=== PATIENT | male | born 1990 | race Caucasian/White ===

== ENCOUNTER 2022-09-25 18:16 | Emergency (ER) | payer OTHER, SELFPAY ==
[2022-09-25 18:27] VITALS: BP 144/78; PULSE 75; RESP 16; TEMP 36.4; O2SAT 100
--- NOTE | 2022-09-25 19:03 | ED.GENADULT ---
HPI - General Adult General Chief complaint: Neck Pain/Injury Stated complaint: neck pain Time Seen by Provider: 09/25/22 18:50 History of Present Illness HPI narrative: 32-year-old male present emergency department for evaluation of neck pain. Patient states that he woke up with the neck pain. Patient states the pain does radiate to both of his shoulders and is worsened with movement of his head. Patient denies any associated numbness or weakness. Patient has been taking ibuprofen and Excedrin without significant improvement of his pain. Related Data Allergies Allergy/AdvReac Type Severity Reaction Status Date / Time pseudoephedrine Allergy Unknown Unknown Verified 09/25/22 19:24 Review of Systems Review of Systems: All systems reviewed & are unremarkable except as noted in HPI and below Exam Narrative: APPEARANCE: Well appearing, no pain, no distress, well-nourished. HEAD: normocephalic, atraumatic. EYES: PERRLA/EOMI, conjunctivae clear. NOSE: Normal no drainage NECK: Supple. No adenopathy, no masses. RESPIRATORY: Airway patent, respirations nonlabored. Clear to auscultation bilaterally, no rales, rhonchi, wheezing. CARDIOVASCULAR: Regular rate and rhythm without murmurs rubs or gallops. ABDOMINAL: Soft, nontender, nondistended, normal bowel sounds MUSCULOSKELETAL: No significant midline neck tenderness but does have tenderness of the paraspinal muscles into bilateral deltoids NEURO: Alert. Cranial nerves II through XII intact. Grossly intact SKIN: Warm, dry. Normal Color Course Course Emergency Course: 32-year-old male presented to the emergency department for evaluation of bilateral muscular neck pain. Patient has been taking ibuprofen and Excedrin for pain control. Patient was given Toradol, Flexeril and [place] in the emergency department. Patient will be provided Flexeril for home. Patient was updated on the results of his exam and on the plan for treatment at home. Patient was educated on reasons to return to the emergency department. All question concerns were addressed. Vital Signs Vital signs: Vital Signs Temperature 97.5 F L 09/25/22 18:27 Pulse Rate 75 09/25/22 18:27 Respiratory Rate 16 09/25/22 18:27 Blood Pressure 144/78 H 09/25/22 18:27 Pulse Oximetry 100 09/25/22 18:27 Oxygen Delivery Room Air 09/25/22 18:27 Temperature 97.5 F L 09/25/22 18:27 Pulse Rate 75 09/25/22 18:27 Respiratory Rate 16 09/25/22 18:27 Blood Pressure 144/78 H 09/25/22 18:27 Pulse Oximetry 100 09/25/22 18:27 Oxygen Delivery Room Air 09/25/22 18:27 Medical Decision Making Vital Signs Vital Signs: Vital Signs Temperature 97.5 F L 09/25/22 18:27 Pulse Rate 75 09/25/22 18:27 Respiratory Rate 16 09/25/22 18:27 Blood Pressure 144/78 H 09/25/22 18:27 Pulse Oximetry 100 09/25/22 18:27 Oxygen Delivery Room Air 09/25/22 18:27 Temperature 97.5 F L 09/25/22 18:27 Pulse Rate 75 09/25/22 18:27 Respiratory Rate 16 09/25/22 18:27 Blood Pressure 144/78 H 09/25/22 18:27 Pulse Oximetry 100 09/25/22 18:27 Oxygen Delivery Room Air 09/25/22 18:27 Discharge Plan Discharge Clinical Impression: Strain of neck muscle Patient Disposition: Home, Self-Care Condition: Stable Instructions: Antibiotic Form, Neck Pain (ED) Additional Instructions: Ibuprofen and acetaminophen as directed for pain control. Flexeril as needed for muscle spasm. Have close follow-up with your primary care physician. If you have any worsening symptoms then please call or return to the emergency department. Prescriptions: New cyclobenzaprine 10 mg tablet 10 mg PO BID PRN (Reason: muscle spasm) Qty: 14 0RF Follow-up/Referrals: PHYSICIAN,[employer] [Primary Care Provider] -
[2022-09-25] MEDS: HYDROcodone/acetaminophen (*CRX) 5-325 MG TABLET 1 TAB PO (19:25)
[2022-09-25] MEDS: CYCLOBENZAPRINE HCL 10 MG TABLET PO (19:25)
[2022-09-25] MEDS: KETOROLAC 30 MG/ML VIAL (*BKC) IM (19:25)
== END 2022-09-25 19:29 | disposition home or self-care (01) ==
PROVIDERS: Emergency Provider Emergency Medicine
DX: S16.1XXA Strain of muscle, fascia and tendon at neck level, initial encounter (principal); X58.XXXA Exposure to other specified factors, initial encounter
CPT/HCPCS: 96372; 99283; A9270; J1885

== ENCOUNTER 2024-12-11 17:23 | Emergency (ER) | payer OTHER, SELFPAY ==
[2024-12-11 17:34] VITALS: BP 145/98; PULSE 90; RESP 20; TEMP 36.7; O2SAT 96
--- NOTE | 2024-12-11 18:09 | ED_ITS ---
HPI - General Adult General Chief complaint: Back Pain/Injury Stated complaint: back pain Time Seen by Provider: 12/11/24 18:09 Source: patient, RN notes reviewed and old records reviewed Mode of arrival: ambulatory Limitations: no limitations History of Present Illness HPI narrative: 34-year-old male presents to the [facility] with mid back pain since 2:00 a.m.. Denies any injury. Unable to reproduce pain. Denies any loss retention of bowel or bladder. No numbness or tingling in extremities. Denies any chest pain. Denies abdominal pain. No bruising, erythema, ecchymosis noted. No rashes noted. Pain is worse with movement. Mom states that he has been sleeping on a ?broken down couch. ? Requesting a work note Denies any IV drug use Onset (ago): hour(s) Related Data Home Medications ?Medication ?Instructions ?Recorded ?Confirmed ?Last Taken ?Type aripiprazole 2 mg tablet mg 12/11/24 Unknown History bupropion HCl 300 mg 24 hr tablet, mg PO 12/11/24 Unk nown History extended release hydroxyzine pamoate 50 mg capsule mg 12/11/24 Unknown History quetiapine 50 mg tablet mg 12/11/24 Unknown History Allergies Allergy/AdvReac Type Severity Reaction Status Date / Time pseudoephedrine Allergy Unknown Unknown Verified 12/11/24 17:40 Review of Systems Review of Systems: All systems reviewed & are unremarkable except as noted in HPI and below Constitutional: Constitutional: Reports no additional constitutional complaints Cardiovascular: Cardiovascular: Denies chest pain Respiratory: Respiratory: Reports no additional respiratory complaints, Denies chest congestion, Denies cough and Denies dyspnea Gastrointestinal: Gastrointestinal: Reports no additional gastrointestinal complaints Musculoskeletal: Musculoskeletal: Reports as per HPI, Reports back pain, Denies muscle weakness, Denies neck pain and Denies numbness Integumentary/Breasts: Skin/Breast: Reports system reviewed and no additional complaints, except as docu PMFSH Comments At the time of my signature, I reviewed and agree with the nursing past medical, surgical, social, and family history. There is no relevant family history pertinent to the patient complaint. Exam Const: General: cooperative, healthy appearing, no acute distress, well developed, alert, uncomfortable and well nourished Nutritional Appearance: well nourished Orientation/consciousness: patient oriented x3 Limitations: no limitations HENMT: Head: normal to inspection Eyes: General: appearance normal, both eyes and all related structures Alignment and Position: alignment normal Neck: Neck: normal visual inspection, full ROM, no lymphadenopathy and no meningeal signs Chest: Chest palpation & inspection: normal inspection of the chest Resp: Effort & Inspection: normal respiratory effort and able to speak in complete sentences Auscultation: clear to auscultation bilaterally, no crackles, no rales, no rhonchi and no wheezes Cardio: Rate: regular rate GI: GI Palp: No abdominal tenderness Back/Spine/Pelvis: Back: back tenderness Cervical Spine: normal cervical lordosis, cervical ROM normal, No cervical muscular tenderness and No Cervical spine tenderness Thoracic/Lumbar Spine: No Thoracic/lumbar spine scar(s), pain with thoraco-lumbar ROM, paraspinal muscle tenderness bilaterally in the mid thoracic, No thoracic spinal tenderness and No lumbar spinal tenderness Pelvis: no pain with anterior-posterior compression Skin: General skin exam: normal color and no rashes or lesions noted Neuro: General: patient oriented x3, gait normal, moves all extremities and no meningeal signs Cognition (Neuro): normal cognition Speech: normal speech Gait exam (Neuro): Normal gait present Extrem: General: normal to inspection, full ROM, capillary refill normal and normal gait Psych: Appearance: grossly normal and well kempt Mental Status: mental status grossly normal Speech and movement: Normal speech and movement present and Clear speech present Affect: normal affect Attitude: cooperative Course Course Level of Care: Express Care Visit Vital Signs Vital signs: Vital Signs Temperature 98.1 F 12/11/24 17:34 Pulse Rate 90 12/11/24 17:34 Respiratory Rate 20 12/11/24 17:34 Blood Pressure 145/98 H 12/11/24 17:34 Pulse Oximetry 96 12/11/24 17:34 Oxygen Delivery Room Air 12/11/24 17:34 Temperature 98.1 F 12/11/24 17:34 Pulse Rate 90 12/11/24 17:34 Respiratory Rate 20 12/11/24 17:34 Blood Pressure 145/98 H 12/11/24 17:34 Pulse Oximetry 96 12/11/24 17:34 Oxygen Delivery Room Air 12/11/24 17:34 Reviewed Medical Decision Making MDM Narrative Medical decision making narrative: Patient is brought in by his mother. Patient is sitting in exam room. Appears uncomfortable. Reports pain with movement. Unable to reproduce pain. No midline tenderness. No erythema, ecchymosis. No pain around the scapular areas. Patient reporting lower rib area without midline tenderness with movement. Patient appropriate for outpatient treatment with close follow-up Discharge instructions reviewed with patient, as well as provided in writing per nursing staff. The instructions also include specific and strict return/GO TO THE ER as well as f/u information. All questions have been answered, and the patient deny any further questions with discharge and discharge plan. Some parts of this dictation were generated by voice recognition software and may contain typographical and/or grammatical inaccuracies. Differential Diagnosis Differential Diagnosis: Back pain, muscle strain Medical Records Medical records reviewed: Yes I reviewed the external patient's medical records. Vital Signs Vital Signs: Vital Signs Temperature 98.1 F 12/11/24 17:34 Pulse Rate 90 12/11/24 17:34 Respiratory Rate 20 12/11/24 17:34 Blood Pressure 145/98 H 12/11/24 17:34 Pulse Oximetry 96 12/11/24 17:34 Oxygen Delivery Room Air 12/11/24 17:34 Temperature 98.1 F 12/11/24 17:34 Pulse Rate 90 12/11/24 17:34 Respiratory Rate 20 12/11/24 17:34 Blood Pressure 145/98 H 12/11/24 17:34 Pulse Oximetry 96 12/11/24 17:34 Oxygen Delivery Room Air 12/11/24 17:34 Reviewed Lab Data Lab results reviewed: Yes I reviewed the patient's lab results. Labs: Reviewed Critical Care Time Critical Care Time Critical Care Time: No Discharge Plan Discharge Clinical Impression: Back pain Qualifiers: Back pain location: back pain in unspecified location Chronicity: acute Back pain laterality: bilateral Qualified Code(s): M54.9 - Dorsalgia, unspecified Patient Disposition: Home Condition: Stable Instructions: Back Pain (ED) Additional Instructions: Take ibuprofen as directed to decrease inflammation and to help pain. Take Baclofen (muscle relaxer) as directed. Do not drink, drive, operate machinery, or do anything dangerous while taking this medication Exercise:Combine aerobic exercise, like walking or swimming, with specific exercises to keep the muscles in your back and abdomen strong and flexible. Proper Lifting:Be sure to lift heavy items with your legs, not your back. Do not bend over to pick something up. Keep your back straight and bend at your knees. Weight:Maintain a healthy weight. Being overweight puts added stress on your lower back. Avoid Smoking:Both the smoke and the nicotine cause your spine to age faster than normal. Proper Posture:Good posture is important for avoiding future problems. A therapist can teach you how to safely stand, sit, and lift. Use warm moist heat to help with pain. Using topical such as Biofreeze, Shai-Coe or Aspercreme can also help Follow up with Primary provider in 2-3 days, This may become a chronic condition and they will be the one to help manage your pain and order additional testing. Go to the nearest ER if you develop problems with bladder/bowel function, weakness or loss of feeling in one or both of your legs. Patient Language: [place]ian Prescriptions: New baclofen 10 mg tablet 10 mg PO TID PRN (Reason: muscle pain) Qty: 10 0RF No Action hydroxyzine pamoate 50 mg capsule bupropion HCl 300 mg tablet extended release 24 hr PO aripiprazole 2 mg tablet quetiapine 50 mg tablet Follow-up/Referrals: Amanda,Ahmet [Other] - 2 Weeks Clinical Impression: Back pain Stand Alone Forms: Work/School Release IP Time of Disposition: 18:22
== END 2024-12-11 18:30 | disposition home or self-care (01) ==
PROVIDERS: Emergency Provider Nurse Practitioner
DX: M54.6 Pain in thoracic spine (principal); F31.9 Bipolar disorder, unspecified
CPT/HCPCS: 99213; G0463